=== PATIENT | male | born 1960 | race Caucasian/White ===

== ENCOUNTER 2020-12-26 11:05 | Emergency (ER) | payer OTHER ==
[2020-12-26 12:05] LABS: BASOPHIL 0.5 % (0-2); EOSINOPHIL 0 % (0-5); HCT 44.7 % (42.0-52.0); HGB 15.1 g/dl (13.2-18.0); LYMPHOCYTE 8.1 % (15-48); MCHC 33.8 g/dL (32.0-36.0); MCV 94.7 fL (78.0-100.0); MONOCYTE 9.4 % (0-12); MPV 8.7 fL (6.0-9.5); NEUTROPHIL 81.5 % (41-80); NRBC 0; PLT 166 K/uL (150-400); RBC 4.72 M/uL (4.70-6.00); RDW 13.2 % (11.5-14.0); WBC 7.9 K/uL (4.0-10.5)
[2020-12-26 12:21] LABS: BILIRUBIN NEGATIVE (NEGATIVE); BLOOD 2+ Ery/uL (NEGATIVE); CLARITY CLEAR (CLEAR); COLOR YELLOW (YELLOW); GLUCOSE (U) NORMAL (NORMAL); LEUKOCYTES NEGATIVE Leu/uL (NEGATIVE); NITRITE NEGATIVE (NEGATIVE); PROTEIN 2+ mg/dL (NEGATIVE); SPECIFIC GRAVITY 1.025 (1.001-1.030)
[2020-12-26 12:38] LABS: ALBUMIN 3.9 g/dL (3.4-5.0); BILIRUBIN - TOTAL 0.8 mg/dL (0.2-1.0); BUN/CREAT RATIO (CALC) 17.1 RATIO; CREATININE 1.17 mg/dL (0.67-1.17); GLOBULIN (CALCULATION) 3.5 g/dL; POTASSIUM 3.6 mmol/L (3.5-5.1); TOTAL PROTEIN 7.4 g/dL (6.4-8.2)
[2020-12-26 12:45] LABS: LACTIC ACID 0.8 mmol/L (0.4-1.9)
[2020-12-26 12:48] LABS: CORONAVIRUS 2019 SARS-COV-2 NEGATIVE (NEGATIVE); INFLUENZA A NAA NEGATIVE (NEGATIVE)
[2020-12-26 12:59] LABS: BACTERIA TRACE; URINARY RBC 20-50; URINARY WBC RARE
[2020-12-26 14:28] LABS: ECSTASY (MDMA) NEGATIVE (NEGATIVE); MARIJUANA (THC) NEGATIVE (NEGATIVE); METHADONE NEGATIVE (NEGATIVE)
[2020-12-26 14:29] LABS: AMPHETAMINES NEGATIVE (NEGATIVE); BARBITURATES NEGATIVE (NEGATIVE); OPIATES NEGATIVE (NEGATIVE); OXYCODONE NEGATIVE (NEGATIVE)
[2020-12-26] MEDS ORDERED: CYCLOBENZAPRINE10 MG PO (15:06)
[2020-12-26] MEDS ORDERED: AUGMENTIN 875-1 EACH PO (15:06)
== END 2020-12-26 15:35 | disposition home or self-care (01) ==
LOC: FER 11:05
PROVIDERS: Emergency Medicine; Nurse Practitioner Family
DX: J06.9 Acute upper respiratory infection, unspecified (principal); R04.2 Hemoptysis; R91.1 Solitary pulmonary nodule; M54.9 Dorsalgia, unspecified; F17.210 Nicotine dependence, cigarettes, uncomplicated; Z20.822 Contact with and (suspected) exposure to COVID-19
CPT/HCPCS: 36415; 71045; 80053; 80305; 81001; 82150; 83605; 84145; 84484; 85025; 87040; 87088; 93005; J1885; J2405; J7030; U0002